=== PATIENT | female | born 1950 | race Caucasian/White ===

== ENCOUNTER 2021-03-18 12:09 | Inpatient (IN) ==
[2021-03-18] MEDS ORDERED: SODIUM CHLORIDE 0.9% 1000ML 1,000 ML IV ONE (12:15)
[2021-03-18] MEDS ORDERED: PIPERACILL/TAZOBAC CONSULT ACTIVE PRN (12:15)
[2021-03-18] MEDS ORDERED: PIPERACILLIN/TAZOBACTAM 4.5 GM/120 ML BAG IV ONE (12:15)
[2021-03-18 12:40] LABS: Basophils # (auto) 0.01 K/uL (0-0.2); Basophils % (auto) 0.1 %; Eosinophils % (auto) 2.6 %; Immature Granulocytes # (auto) 0.02 K/uL (0.00-0.02); Immature Granulocytes % (auto) 0.3 %; Lymphocytes # (auto) 0.48 K/uL (1.2-3.4); Lymphocytes % (auto) 6.3 %; Mean Corpuscular Hemoglobin 31.3 pg (25-34); Mean Corpuscular Hgb Conc 31.3 g/dL (32-36); Mean Platelet Volume 10.6 fL (7.4-10.4); Monocytes # (auto) 0.36 K/uL (0.11-0.59); Monocytes % (auto) 4.7 %; Neutrophils # (auto) 6.58 K/uL (1.4-6.5); Platelet Count 155 K/uL (130-400); RDW Coefficient of Variation 14.7 % (11.5-14.5); RDW Standard Deviation 53.3 fL (36.4-46.3); White Blood Count 7.65 K/uL (4.8-10.8)
--- NOTE | 2021-03-18 12:51 | XRay Report ---
XR chest 1V portable HISTORY: SEPSIS COMPARISON: Chest 01/10/2016. FINDINGS: No pneumothorax. No pleural effusions. The cardiac silhouette remains enlarged. There are p oststernotomy changes and a left-sided pacemaker/defibrillator. There is mild central pulmonary vascu lar congestion without overt edema. No new focal lung consolidations to suggest pneumonia. IMPRESSION: Cardiomegaly and mild central pulmonary vascular congestion without overt edema. This is similar to t he prior study. ACT 112: Negative or not required by law. Electronically signed by: Sanjeev Gibbs M.D. 03/18/2021 12:50 PM
--- NOTE | 2021-03-18 12:54 | Emergency Department Note ---
Impression & Plan Acute alteration in mental status, UTI (urinary tract infection), Acute kidney injury ED Provider Note NAME: JOSE ANTONIO SILVERIO AGE: 70 SEX: F : 1950 ARRIVES VIA: Ambulance INFORMANT: Patient, EMS personnel ED PROVIDER(S): Christopher Parker DO CHIEF COMPLAINT: Altered mental status HPI: The patient is a 70-year-old female who presented to the emergency department for an evaluation of altered mental status. The patient recently r eturned from a trip that she took to [place]. The patient offers no complaints at this time. She is very confused. According to the EMS personnel the patient was found to have a fever. Her significant other thought that she felt subjectively warm but no fever was reported. She has had no nausea or vomiting. She does have a history of COPD but also has a history of frequent urinary tract infections. She was noted to have a cough by the prehospital personnel and her pulse ox was borderline. She has had no reported trauma. The patient herself denies having any headache or back pain. History is significantly limited secondary to patient's altered mental status. ROS: See above HPI for pertinent positives & negatives. A total of 10 systems reviewed and were otherwise negative. PAST MEDICAL HISTORY: See Below PAST SURGICAL HISTORY: See Below FAMILY HISTORY: See Below SOCIAL HISTORY: See Below HOME MEDICATIONS: See Below ALLERGIES: See Below VITALS: See Below PHYSICAL EXAMINATION: GENERAL: The patient is listless and slow to respond to questions. EYES: The conjunctivae are clear. The pupils are round and reactive. EARS, NOSE, MOUTH AND THROAT: The nose is without any evidence of any deformity. Mucous membranes are dry. NECK: The neck is nontender and supple. RESPIRATORY: Diminished breath sounds are noted throughout. Rales were noted in both lung zambrano. CARDIOVASCULAR: Regular rate and rhythm noted there no murmurs rubs or gallops normal S1 normal S2. GASTROINTESTINAL: The abdomen is soft. Abdomen is nontender. There is an ostomy noted. There is no blood in the ostomy bag. MUSCULOSKELETAL/EXTREMITIES: There is no evidence of gross deformity full range of motion is noted in the hips and shoulders. SKIN: Skin was warm and dry. Trace pedal edema was noted bilaterally. NEUROLOGIC: Patient does follow commands intermittently. She does appear confused and slow to answer questions. The patient was all extremities well. MEDICAL DECISION MAKING: The patient is a 70-year-old female who presented to the emergency department for an evaluation of altered mental status. We were told by the prehospital personnel that the patient recently returned from a trip but when the arrived he states that is not the truth and that they were not traveling recently. The patient has a history of urinary tract infection. She was found have a fever. I discussed the patient's laboratory and radiographic studies with her and her . She appeared to have alteration in mental status. I do fear that this could be secondary to the degree of her infection. She was treated with IV fluids and IV antibiotics. She was reevaluated multiple times. Her symptoms improved mildly but she continued to have fever and tachycardia. For this reason [facility] have agreed to evaluate the patient in the emergency department for further management and disposition. Triage Nursing notes reviewed. Prior medical records reviewed Vital Signs: reviewed and remarkable for tachycardia and fever. Differential diagnosis: Infection, hypoglycemia, electrolyte abnormalities, overdose, toxicologic, cardiac sources, intracerebral event, neurologic, trauma, as well as other pathologies. ER treatment provided: See below Diagnostics interpreted by me: ECG: EKG was obtained in the emergency department. My interpretation is atrial sensed ventricular paced rhythm at 97 bpm. There was a right bundle branch block pattern noted. There were no kashia beats appreciated. This was compared to a tracing from January 112015. No significant changes were noted. Cardiac Monitoring: An order was placed for continuous cardiac monitoring. The monitor shows a rate of 115 bpm with paced rhythm. Laboratory studies: As stated above and show below. Imaging studies: See below Consultation(s): 1405: I discussed this case with Dr. Bell who is on-call for the [facility] hospitalist group. They will evaluate the patient in the emergency department. Past Med/Surg History Medical History (Updated 03/18/21 @ 19:22 by Christopher Parker DO) YUMIKO (acute kidney injury) Chest pain Hx of myocardial infarction Hypotension Pacemaker Sepsis Surgical History History of bowel resection Social History Smoking Status: Unknown if ever smoked Feels Safe at Home: Yes Allergies Allergies Allergy/AdvReac Type Severity Reaction Status Date / Time Iodinated Contrast Media Allergy Unknown "CONTRAST Verified 03/18/21 14:29 MEDIA" ALLERGY orphenadrine Allergy Unknown Verified 03/18/21 14:29 prochlorperazine Allergy Unknown Verified 03/18/21 14:29 Unclassified Drugs Allergy Unknown XANTHINE Uncoded 03/18/21 14:29 ALLERGY Home Meds Home Medications Medication Instructions Recorded Confirmed allopurinol 300 mg tablet 300 mg PO HS 03/18/21 03/18/21 apixaban 5 mg tablet (Eliquis) 5 mg PO BID 03/18/21 03/18/21 aspirin 81 mg tablet,delayed 81 mg PO QAM 03/18/21 03/18/21 release (Aspirin Low Dose) atorvastatin 40 mg tablet (Lipitor) 40 mg PO DAILY 03/18/21 03/18/21 benzonatate 100 mg capsule 100 mg PO TID PRN 03/18/21 03/18/21 (Tessalon Perles) carvedilol 25 mg tablet (Coreg) 25 mg PO BID 03/18/21 03/18/21 citalopram 20 mg tablet (Celexa) 20 mg PO QAM 03/18/21 03/18/21 diclofenac sodium 1 % topical gel 2 g TOPICAL QID PRN 03/18/21 03/18/21 (Voltaren Arthritis Pain) famotidine 20 mg tablet (Pepcid) 20 mg PO BID 03/18/21 03/18/21 fentanyl 25 mcg/hr transdermal 25 mcg TRANSDERMAL Q72H 03/18/21 03/18/21 patch (Duragesic) ferrous sulfate 325 mg (65 mg 325 mg PO QAM 03/18/21 03/18/21 iron) tablet (iron) furosemide 40 mg tablet (Lasix) 40 mg PO BID 03/18/21 03/18/21 gabapentin 600 mg tablet 600 mg PO TID 03/18/21 03/18/21 (Neurontin) hydrocodone 10 mg-acetaminophen 1 tab PO TID PRN 03/18/21 03/18/21 325 mg tablet insulin glargine 100 unit/mL (3 15 unit SUBCUT HS 03/18/21 03/18/21 mL) subcutaneous pen (Lantus Solostar U-100 Insulin) ipratropium bromide 17 2 puff INHALATION QID 03/18/21 03/18/21 mcg/actuation HFA aerosol inhaler (Atrovent HFA) isosorbide mononitrate 30 mg 30 mg PO QAM 03/18/21 03/18/21 tablet,extended release 24 hr latanoprost 0.005 % eye drops 1 drp OPB HS 03/18/21 03/18/21 (Xalatan) magnesium oxide 400 mg PO QAM 03/18/21 03/18/21 montelukast 10 mg tablet 10 mg PO HS 03/18/21 03/18/21 (Singulair) wyioqssovqls-rmtswsyd-mycxtg 1 tab PO QAM 03/18/21 03/18/21 tablet (Cerovite Senior) potassium chloride 20 mEq 20 meq PO BID 03/18/21 03/18/21 tablet,extended release(part/cryst) (Klor-Con M) tiotropium bromide 1.25 2 puff INHALATION DAILY 03/18/21 03/18/21 mcg/actuation mist for inhalation (Spiriva Respimat) tizanidine 4 mg tablet (Zanaflex) 2 - 4 mg PO Q24H PRN 03/18/21 03/18/21 valsartan 40 mg tablet (Diovan) 40 mg PO HS 03/18/21 03/18/21 Results & Data (ED) Vital Signs Vital Signs - 24 hr 03/18/21 12:10 03/18/21 12:17 03/18/21 12:31 Temperature 39.7 C H Temperature Source Rectal Pulse Rate 99 H Pulse Rate [Left Finger] Pulse Rate from SpO2 Sensor 99 H 99 H Respiratory Rate 26 H 24 20 Respiratory Effort / Characteristics Non-Labored Respiratory Depth Normal Blood Pressure 126/54 L 126/54 L 130/79 Blood Pressure [Left Arm] Blood Pressure Mean 78 78 96 Blood Pressure Mean [Left Arm] Pulse Oximetry 91 95 93 Oxygen Delivery Method Room Air Oxygen Flow Rate Sepsis Recent Fever Within 48 Hours Yes Sepsis New/Unexplained Change in Mental Status Yes Sepsis Action Taken by Nursing Physician Notified Pulse Oximetry Post Tiitration 03/18/21 12:59 03/18/21 13:00 03/18/21 13:01 Temperature Temperature Source Pulse Rate Pulse Rate [Left Finger] 99 H Pulse Rate from SpO2 Sensor 100 H 99 H Respiratory Rate 20 20 26 H Respiratory Effort / Characteristics Non-Labored Non-Labored Respiratory Depth Blood Pressure 118/83 141/83 H Blood Pressure [Left Arm] 141/83 H Blood Pressure Mean 94 102 Blood Pressure Mean [Left Arm] 102 Pulse Oximetry 95 94 95 Oxygen Delivery Method Room Air Room Air Oxygen Flow Rate Sepsis Recent Fever Within 48 Hours Sepsis New/Unexplained Change in Mental Status Sepsis Action Taken by Nursing Pulse Oximetry Post Tiitration 03/18/21 13:26 03/18/21 13:57 03/18/21 14:00 Temperature Temperature Source Pulse Rate 103 H 106 H 104 H Pulse Rate [Left Finger] Pulse Rate from SpO2 Sensor 103 H 106 H Respiratory Rate 17 21 23 Respiratory Effort / Characteristics Respiratory Depth Blood Pressure 132/65 118/73 Blood Pressure [Left Arm] Blood Pressure Mean 87 88 Blood Pressure Mean [Left Arm] Pulse Oximetry 96 97 Oxygen Delivery Method Oxygen Flow Rate Sepsis Recent Fever Within 48 Hours Sepsis New/Unexplained Change in Mental Status Sepsis Action Taken by Nursing Pulse Oximetry Post Tiitration 03/18/21 14:04 03/18/21 14:05 03/18/21 14:31 Temperature Temperature Source Pulse Rate 107 H Pulse Rate [Left Finger] 102 H Pulse Rate from SpO2 Sensor 107 H Respiratory Rate 17 15 Respiratory Effort / Characteristics Non-Labored Respiratory Depth Normal Blood Pressure 133/83 Blood Pressure [Left Arm] 118/73 Blood Pressure Mean 99 Blood Pressure Mean [Left Arm] 88 Pulse Oximetry 93 100 100 Oxygen Delivery Method Nasal Cannula Nasal Cannula Oxygen Flow Rate 2.5 2.5 Sepsis Recent Fever Within 48 Hours Sepsis New/Unexplained Change in Mental Status Sepsis Action Taken by Nursing Pulse Oximetry Post Tiitration 100 03/18/21 14:52 03/18/21 14:53 03/18/21 15:00 Temperature Temperature Source Pulse Rate 111 H 112 H Pulse Rate [Left Finger] 112 H Pulse Rate from SpO2 Sensor 111 H 114 H Respiratory Rate 28 H 20 28 H Respiratory Effort / Characteristics Non-Labored Respiratory Depth Normal Blood Pressure 138/68 124/75 Blood Pressure [Left Arm] 143/78 H Blood Pressure Mean 91 91 Blood Pressure Mean [Left Arm] 99 Pulse Oximetry 98 100 100 Oxygen Delivery Method Oxygen Flow Rate 2.5 Sepsis Recent Fever Within 48 Hours Sepsis New/Unexplained Change in Mental Status Sepsis Action Taken by Nursing Pulse Oximetry Post Tiitration Home Medications Current Medication List: was personally reviewed by me Laboratory Data Attestation: I reviewed the patient's lab results. Result diagrams: 03/18/21 11:56 03/18/21 11:56 Lab Results 03/18/21 03/18/21 03/18/21 Range/Units 11:56 11:56 11:56 WBC 7.65 (4.8-10.8) K/uL RBC 3.20 L (4.2-5.4) M/uL Hgb 10.0 L (12.0-16.0) g/dL Hct 32.0 L (37-47) % MCV 100.0 (80-100) fL MCH 31.3 (25-34) pg MCHC 31.3 L (32-36) g/dL RDW Std Deviation 53.3 H (36.4-46.3) fL RDW Coeff of Shira 14.7 H (11.5-14.5) % Plt Count 155 (130-400) K/uL MPV 10.6 H (7.4-10.4) fL Immature Gran % (Auto) 0.3 % Neut % (Auto) 86.0 % Lymph % (Auto) 6.3 % [place] % (Auto) 4.7 % Eos % (Auto) 2.6 % Baso % (Auto) 0.1 % Neut # (Auto) 6.58 H (1.4-6.5) K/uL Lymph # (Auto) 0.48 L (1.2-3.4) K/uL [place] # (Auto) 0.36 (0.11-0.59) K/uL Eos # (Auto) 0.20 (0-0.5) K/uL Baso # (Auto) 0.01 (0-0.2) K/uL Immature Gran # (Auto) 0.02 (0.00-0.02) K/uL PT Cancelled INR Cancelled APTT Cancelled PTT Ratio Cancelled VBG pH (7.36-7.41) VBG pCO2 (38-50) mmHg VBG pO2 mmHg VBG HCO3 mmol/L VBG O2 Saturation % VBG Base Excess mEq/L Barometric Pressure mm/Hg Sodium 135 L (136-145) mmol/L Potassium 5.8 H (3.5-5.1) mmol/L Chloride 106 (98-107) mmol/L Carbon Dioxide 27 (21-32) mmol/L Anion Gap 2.0 L (3-11) BUN 30 H (7-18) mg/dl Creatinine 2.36 H (0.6-1.2) mg/dl Est Cr Clr Drug Dosing 24.1 ml/min Est GFR ( Amer) 23.7 ml/min Est GFR (Non-Af Amer) 20.5 ml/min BUN/Creatinine Ratio 12.6 (10-20) Glucose 154 H (70-99) mg/dl Lactate (0.4-2.0) mmol/L Calcium 8.7 (8.5-10.1) mg/dl Magnesium 2.1 (1.8-2.4) mg/dl Total Bilirubin 0.6 (0.2-1) mg/dl AST 24 (15-37) U/L ALT 19 (12-78) U/L Alkaline Phosphatase 125 H (45-117) U/L Troponin I < 0.015 (0-0.045) ng/ml Total Protein 7.4 (6.4-8.2) gm/dl Albumin 3.2 L (3.4-5.0) gm/dl Globulin 4.2 H (2.5-4.0) gm/dl Albumin/Globulin Ratio 0.8 L (0.9-2) Procalcitonin (0-0.5) ng/ml Specimen Hemolysis Urine Color Urine Appearance (Clear) Urine pH (4.5-7.5) Ur Specific Ruby (1.000-1.030) Urine Protein (Negative) Urine Glucose (UA) (Negative) Urine Ketones (Negative) Urine Blood (Negative) Urine Nitrite (Negative) Urine Bilirubin (Negative) Urine Urobilinogen (Negative) Ur Leukocyte Esterase (Negative) Urine WBC (Auto) (0-5) /hpf Urine RBC (Auto) (0-4) /hpf U Hyaline Cast (Auto) (0-5) /lpf U Epithel Cells (Auto) (0-5) /lpf Urine Bacteria (Auto) (Negative) Urine Yeast (None Prsent) COVID-19 Eval Order SARS-CoV-2 (PCR) (Negative) 03/18/21 03/18/21 03/18/21 Range/Units 11:56 12:44 12:45 WBC (4.8-10.8) K/uL RBC (4.2-5.4) M/uL Hgb (12.0-16.0) g/dL Hct (37-47) % MCV (80-100) fL MCH (25-34) pg MCHC (32-36) g/dL RDW Std Deviation (36.4-46.3) fL RDW Coeff of Shira (11.5-14.5) % Plt Count (130-400) K/uL MPV (7.4-10.4) fL Immature Gran % (Auto) % Neut % (Auto) % Lymph % (Auto) % [place] % (Auto) % Eos % (Auto) % Baso % (Auto) % Neut # (Auto) (1.4-6.5) K/uL Lymph # (Auto) (1.2-3.4) K/uL [place] # (Auto) (0.11-0.59) K/uL Eos # (Auto) (0-0.5) K/uL Baso # (Auto) (0-0.2) K/uL Immature Gran # (Auto) (0.00-0.02) K/uL PT INR APTT PTT Ratio VBG pH (7.36-7.41) VBG pCO2 (38-50) mmHg VBG pO2 mmHg VBG HCO3 mmol/L VBG O2 Saturation % VBG Base Excess mEq/L Barometric Pressure mm/Hg Sodium (136-145) mmol/L Potassium (3.5-5.1) mmol/L Chloride (98-107) mmol/L Carbon Dioxide (21-32) mmol/L Anion Gap (3-11) BUN (7-18) mg/dl Creatinine (0.6-1.2) mg/dl Est Cr Clr Drug Dosing ml/min Est GFR ( Amer) ml/min Est GFR (Non-Af Amer) ml/min BUN/Creatinine Ratio (10-20) Glucose (70-99) mg/dl Lactate (0.4-2.0) mmol/L Calcium (8.5-10.1) mg/dl Magnesium (1.8-2.4) mg/dl Total Bilirubin (0.2-1) mg/dl AST (15-37) U/L ALT (12-78) U/L Alkaline Phosphatase (45-117) U/L Troponin I (0-0.045) ng/ml Total Protein (6.4-8.2) gm/dl Albumin (3.4-5.0) gm/dl Globulin (2.5-4.0) gm/dl Albumin/Globulin Ratio (0.9-2) Procalcitonin 0.24 (0-0.5) ng/ml Specimen Hemolysis Urine Color Yellow Urine Appearance Cloudy A (Clear) Urine pH 5.5 (4.5-7.5) Ur Specific Ruby 1.017 (1.000-1.030) Urine Protein Negative (Negative) Urine Glucose (UA) Negative (Negative) Urine Ketones Negative (Negative) Urine Blood Negative (Negative) Urine Nitrite Positive A (Negative) Urine Bilirubin Negative (Negative) Urine Urobilinogen Negative (Negative) Ur Leukocyte Esterase 2+ H (Negative) Urine WBC (Auto) >30 H (0-5) /hpf Urine RBC (Auto) 0-4 (0-4) /hpf U Hyaline Cast (Auto) 5-10 H (0-5) /lpf U Epithel Cells (Auto) >30 H (0-5) /lpf Urine Bacteria (Auto) 4+ H (Negative) Urine Yeast Budding A (None Prsent) COVID-19 Eval Order Covid19 at [facility] SARS-CoV-2 (PCR) (Negative) 03/18/21 03/18/21 03/18/21 Range/Units 12:45 13:09 13:20 WBC (4.8-10.8) K/uL RBC (4.2-5.4) M/uL Hgb (12.0-16.0) g/dL Hct (37-47) % MCV (80-100) fL MCH (25-34) pg MCHC (32-36) g/dL RDW Std Deviation (36.4-46.3) fL RDW Coeff of Shira (11.5-14.5) % Plt Count (130-400) K/uL MPV (7.4-10.4) fL Immature Gran % (Auto) % Neut % (Auto) % Lymph % (Auto) % [place] % (Auto) % Eos % (Auto) % Baso % (Auto) % Neut # (Auto) (1.4-6.5) K/uL Lymph # (Auto) (1.2-3.4) K/uL [place] # (Auto) (0.11-0.59) K/uL Eos # (Auto) (0-0.5) K/uL Baso # (Auto) (0-0.2) K/uL Immature Gran # (Auto) (0.00-0.02) K/uL PT INR APTT PTT Ratio VBG pH 7.32 L (7.36-7.41) VBG pCO2 56 H (38-50) mmHg VBG pO2 28 mmHg VBG HCO3 28 mmol/L VBG O2 Saturation < 60.0 % VBG Base Excess 0.7 mEq/L Barometric Pressure 730.3 mm/Hg Sodium (136-145) mmol/L Potassium (3.5-5.1) mmol/L Chloride (98-107) mmol/L Carbon Dioxide (21-32) mmol/L Anion Gap (3-11) BUN (7-18) mg/dl Creatinine (0.6-1.2) mg/dl Est Cr Clr Drug Dosing ml/min Est GFR ( Amer) ml/min Est GFR (Non-Af Amer) ml/min BUN/Creatinine Ratio (10-20) Glucose (70-99) mg/dl Lactate 1.6 (0.4-2.0) mmol/L Calcium (8.5-10.1) mg/dl Magnesium (1.8-2.4) mg/dl Total Bilirubin (0.2-1) mg/dl AST (15-37) U/L ALT (12-78) U/L Alkaline Phosphatase (45-117) U/L Troponin I (0-0.045) ng/ml Total Protein (6.4-8.2) gm/dl Albumin (3.4-5.0) gm/dl Globulin (2.5-4.0) gm/dl Albumin/Globulin Ratio (0.9-2) Procalcitonin (0-0.5) ng/ml Specimen Hemolysis Urine Color Urine Appearance (Clear) Urine pH (4.5-7.5) Ur Specific Ruby (1.000-1.030) Urine Protein (Negative) Urine Glucose (UA) (Negative) Urine Ketones (Negative) Urine Blood (Negative) Urine Nitrite (Negative) Urine Bilirubin (Negative) Urine Urobilinogen (Negative) Ur Leukocyte Esterase (Negative) Urine WBC (Auto) (0-5) /hpf Urine RBC (Auto) (0-4) /hpf U Hyaline Cast (Auto) (0-5) /lpf U Epithel Cells (Auto) (0-5) /lpf Urine Bacteria (Auto) (Negative) Urine Yeast (None Prsent) COVID-19 Eval Order SARS-CoV-2 (PCR) NEGATIVE (Negative) 03/18/21 Range/Units 14:30 WBC (4.8-10.8) K/uL RBC (4.2-5.4) M/uL Hgb (12.0-16.0) g/dL Hct (37-47) % MCV (80-100) fL MCH (25-34) pg MCHC (32-36) g/dL RDW Std Deviation (36.4-46.3) fL RDW Coeff of Shira (11.5-14.5) % Plt Count (130-400) K/uL MPV (7.4-10.4) fL Immature Gran % (Auto) % Neut % (Auto) % Lymph % (Auto) % [place] % (Auto) % Eos % (Auto) % Baso % (Auto) % Neut # (Auto) (1.4-6.5) K/uL Lymph # (Auto) (1.2-3.4) K/uL [place] # (Auto) (0.11-0.59) K/uL Eos # (Auto) (0-0.5) K/uL Baso # (Auto) (0-0.2) K/uL Immature Gran # (Auto) (0.00-0.02) K/uL PT 10.1 INR 1.0 APTT 25.9 PTT Ratio 1.0 VBG pH (7.36-7.41) VBG pCO2 (38-50) mmHg VBG pO2 mmHg VBG HCO3 mmol/L VBG O2 Saturation % VBG Base Excess mEq/L Barometric Pressure mm/Hg Sodium (136-145) mmol/L Potassium (3.5-5.1) mmol/L Chloride (98-107) mmol/L Carbon Dioxide (21-32) mmol/L Anion Gap (3-11) BUN (7-18) mg/dl Creatinine (0.6-1.2) mg/dl Est Cr Clr Drug Dosing ml/min Est GFR ( Amer) ml/min Est GFR (Non-Af Amer) ml/min BUN/Creatinine Ratio (10-20) Glucose (70-99) mg/dl Lactate (0.4-2.0) mmol/L Calcium (8.5-10.1) mg/dl Magnesium (1.8-2.4) mg/dl Total Bilirubin (0.2-1) mg/dl AST (15-37) U/L ALT (12-78) U/L Alkaline Phosphatase (45-117) U/L Troponin I (0-0.045) ng/ml Total Protein (6.4-8.2) gm/dl Albumin (3.4-5.0) gm/dl Globulin (2.5-4.0) gm/dl Albumin/Globulin Ratio (0.9-2) Procalcitonin (0-0.5) ng/ml Specimen Hemolysis Urine Color Urine Appearance (Clear) Urine pH (4.5-7.5) Ur Specific Ruby (1.000-1.030) Urine Protein (Negative) Urine Glucose (UA) (Negative) Urine Ketones (Negative) Urine Blood (Negative) Urine Nitrite (Negative) Urine Bilirubin (Negative) Urine Urobilinogen (Negative) Ur Leukocyte Esterase (Negative) Urine WBC (Auto) (0-5) /hpf Urine RBC (Auto) (0-4) /hpf U Hyaline Cast (Auto) (0-5) /lpf U Epithel Cells (Auto) (0-5) /lpf Urine Bacteria (Auto) (Negative) Urine Yeast (None Prsent) COVID-19 Eval Order SARS-CoV-2 (PCR) (Negative) Administered Medications Acetaminophen (Acetaminophen 325 Mg Tab) 650 mg PO Q4H PRN PRN Reason: pain/fever Stop: 04/17/21 18:25 Last Admin: 03/18/21 19:44 Dose: 650 mg Documented by: [id number] Ceftriaxone Sodium 2,000 mg/ (Dextrose) 70 mls @ 100 mls/hr IV Q24H FOR[facility]LY [facility], 1928–1983; Protocol Stop: 03/28/21 18:59 Last Admin: 03/18/21 19:44 Dose: 100 mls/hr Documented by: [id number] Discontinued Medications Furosemide (Furosemide 40 Mg/4 Ml Vial) 40 mg IV NOW STA Stop: 03/18/21 15:30 Last Admin: 03/18/21 16:01 Dose: 40 mg Documented by: [id number] Sodium Chloride (Nss 1000ml) 1,000 mls @ 999 mls/hr IV .Q1H1M ONE Stop: 03/18/21 13:15 Last Infusion: 03/18/21 14:51 Dose: 0 mls/hr Documented by: [id number] Admin: 03/18/21 12:20 Dose: 999 mls/hr Documented by: [id number] Piperacillin Sod/Tazobactam Sod (Zosyn) 4.5 gm in 120 mls @ 240 mls/hr IV NOW ONE Stop: 03/18/21 12:44 Last Infusion: 03/18/21 14:50 Dose: 0 mls/hr Documented by: [id number] Admin: 03/18/21 13:22 Dose: 240 mls/hr Documented by: [id number] Imaging Data Radiologist's Impression: Abdomen/Pelvis CT 03/18/21 12:15 CT OF THE ABDOMEN AND PELVIS WITHOUT CONTRAST CLINICAL HISTORY: Altered mental status. Abdominal pain. COMPARISON STUDY: CT of the abdomen and pelvis April 30, 2012. TECHNIQUE: Axial images of the abdomen and pelvis were obtained without IV contrast. Images were reviewed in the axial, sagittal, and coronal planes. Automated exposure control was utilized for the study. A dose lowering technique was utilized adhering to the principles of ALARA. FINDINGS: Pacer leads are partially imaged. Cardiomegaly is noted. 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 No pneumatosis, free air or portal venous gas is present. Evaluation of the abdomen and pelvis is compromised given the lack of contrast and motion artifact on this exam. A 1.7 cm hypodense inferior right hepatic lobe lesion is unchanged since CT of April 30, 2012. This is benign. There is borderline spleno megaly. Adrenal glands are unremarkable. There is moderate bilateral renal cortical thinning. There is no hydronephrosis. Posey balloon is present within the bladder as well as a small amount of gas. There are no urinary calculi. There is no biliary ductal dilatation status post cholecystectomy. Note is made of a hypodense 3.7 cm lobulated pancreatic tail mass. This is similar in size to CT of April 30, 2012 although the attenuation appears to have slightly increased. This is suboptimally assessed on this unenhanced exam. Note is made of extensive colonic diverticulosis. There is minimal infiltration adjacent to the remaining portion of the colon and the rectum status post right colon re section. There is a right lower quadrant ileostomy. Several loops of mildly dilated small bowel are noted. No well-defined transition point is identified. There is no lymphadenopathy. Note is made of irregularity bilateral sacroiliac joints which may reflect sacroiliitis. IMPRESSION: 1. Status post right colon resection with right lower quadrant ileostomy. Multiple loops of mildly dilated small bowel without well-defined transition point. The findings favor an ileus however partial small bowel obstruction could appear similar. Exam compromised given lack of contrast and motion artifact. 2. Minimal infiltration adjacent to the rectum and remaining portions of the colon. This could reflect a mild nonspecific proctocolitis. 3. 3.7 cm lobulated pancreatic tail mass. This is similar in size to prior CT of April 30, 2012 however attenuation has slightly increased. This lesion remains pathologically indeterminate. Follow-up nonemergent pancreas protocol CT is recommended. ACT 112: Positive. There are findings on this exam that require communication between the performing entity and the patient following Patient Test Result Information Act ([place] Act 112) guidelines. Electronically signed by: Saroj Rodriguez M.D. 03/18/2021 2:36 PM Chest X-Ray 03/18/21 12:15 XR chest 1V portable HISTORY: SEPSIS COMPARISON: Chest 01/10/2016. FINDINGS: No pneumothorax. No pleural effusions. The cardiac silhouette remains enlarged. There are poststernotomy changes and a left-sided pacemaker/defibrillator. There is mild central pulmonary vascular congestion without overt edema. No new focal lung consolidations to suggest pneumonia. IMPRESSION: Cardiomegaly and mild central pulmonary vascular congestion without overt edema. This is similar to the prior study. ACT 112: Negative or not required by law. Electronically signed by: Sanjeev Gibbs M.D. 03/18/2021 12:[address] 03/18/21 12:15 CT head/brain wo con CLINICAL HISTORY: 70 years-old Female with AMS. Acutely altered mental status TECHNIQUE: Multiple axial CT images of the head were obtained without contrast. A dose lowering technique was utilized adhering to the principles of ALARA. COMPARISON: 10/22/2008. FINDINGS: Motion degraded exam. No acute intracranial hemorrhage, midline shift, intracranial mass, hydrocephalus, territorial ischemia or abnormal extra-axial collection. White matter hypodensities suggestive of chronic microvascular ischemic disease. Ill-defined 9 mm hypodensity of the left paracentral pontine brainstem on image 7 series 2 is new from prior. The calvarium is intact. The paranasal sinuses, mastoid air cells, and middle ear cavities are clear. IMPRESSION: 1. Motion degraded exam. No acute intracranial hemorrhage or acute territorial infarct identified. 2. Subcentimeter ill-defined hypodensity involving the left paracentral mayi is favored to be artifact. An age-indeterminate lacunar infarct could appear similarly. ACT 112: Negative or not required by law. The above report was generated using voice recognition software. It may contain grammatical, syntax or spelling errors. Electronically signed by: Regino Ames M.D. 03/18/2021 2:02 PM Discharge Plan Visit Data Chief Complaint: Altered Mental Status Stated Complaint: Septic ED Provider: Christopher Parker Discharge Problem: Acute alteration in mental status, UTI (urinary tract infection), Acute kidney injury Patient Disposition: Admitted As Inpatient Condition: Good Discharge Instructions Interventions: ED Discharge Assessment Last Done: 03/18/21 18:06 Discharge Problem: UTI (urinary tract infection) Qualifiers: Urinary tract infection type: site unspecified Hematuria presence: without hematuria Qualified Code(s): N39.0 - Urinary tract infection, site not specified
[2021-03-18 13:05] LABS: Appearance Urine Cloudy (Clear); Bacteria Urine Automated 4+ (Negative); Bilirubin Urine Negative (Negative); Blood Urine Negative (Negative); Color Urine Yellow; Epithelial Cell Urine Auto >30 /lpf (0-5); Glucose Urine UA Negative (Negative); Ketones Urine Negative (Negative); Leukocyte Esterase Urine 2+ (Negative); Nitrite Urine Positive (Negative); Protein Urine Negative (Negative); RBC Urine Automated 0-4 /hpf (0-4); Specific Gravity Urine 1.017 (1.000-1.030); Urobilinogen Urine Negative (Negative); WBC Urine Automated >30 /hpf (0-5); pH Urine 5.5 (4.5-7.5)
[2021-03-18 13:06] LABS: Alanine Aminotransferase 19 U/L (12-78); Albumin Level 3.2 gm/dl (3.4-5.0); Aspartate Aminotransferase 24 U/L (15-37); BUN Creatinine Ratio 12.6 (10-20); Blood Urea Nitrogen 30 mg/dl (7-18); Calcium 8.7 mg/dl (8.5-10.1); Carbon Dioxide 27 mmol/L (21-32); Chloride 106 mmol/L (98-107); Creatinine Clr Calc Pharmacy 24.1 ml/min; Est GFR (African American) 23.7 ml/min; Est GFR (Non-African American) 20.5 ml/min; Glucose 154 mg/dl (70-99); Magnesium 2.1 mg/dl (1.8-2.4); Potassium 5.8 mmol/L (3.5-5.1); Sodium 135 mmol/L (136-145)
[2021-03-18 13:11] LABS: Albumin Globulin Ratio 0.8 (0.9-2); Alkaline Phosphatase 125 U/L (45-117); Bilirubin,Total 0.6 mg/dl (0.2-1); Globulin 4.2 gm/dl (2.5-4.0); Total Protein 7.4 gm/dl (6.4-8.2); Troponin I < 0.015 ng/ml (0-0.045)
[2021-03-18 13:21] LABS: Base Excess VBG 0.7 mEq/L; HCO3 VBG 28 mmol/L; PCO2 VBG 56 mmHg (38-50); PO2 VBG 28 mmHg; pH VBG 7.32 (7.36-7.41)
[2021-03-18 13:22] LABS: Oxygen Saturation VBG < 60.0 %
--- NOTE | 2021-03-18 14:03 | CT Scan Report ---
CT head/brain wo con CLINICAL HISTORY: 70 years-old Female with AMS. Acutely altered mental status TECHNIQUE: Multiple axial CT images of the head were obtained without contrast. A dose lowering tech nique was utilized adhering to the principles of ALARA. COMPARISON: 10/22/2008. FINDINGS: Motion degraded exam. No acute intracranial hemorrhage, midline shift, intracranial mass, hydrocephal us, territorial ischemia or abnormal extra-axial collection. White matter hypodensities suggestive of chronic microvascular ischemic disease. Ill-defined 9 mm hypodensity of the left paracentral pontine brainstem on image 7 series 2 is new from prior. The calvarium is intact. The paranasal sinuses, mastoid air cells, and middle ear cavities are clear . IMPRESSION: 1. Motion degraded exam. No acute intracranial hemorrhage or acute territorial infarct identified. 2. Subcentimeter ill-defined hypodensity involving the left paracentral mayi is favored to be artifac t. An age-indeterminate lacunar infarct could appear similarly. ACT 112: Negative or not required by law. The above report was generated using voice recognition software. It may contain grammatical, syntax o r spelling errors. Electronically signed by: Regino Ames M.D. 03/18/2021 2:02 PM
--- NOTE | 2021-03-18 14:38 | CT Scan Report ---
CT OF THE ABDOMEN AND PELVIS WITHOUT CONTRAST CLINICAL HISTORY: Altered mental status. Abdominal pain. COMPARISON STUDY: CT of the abdomen and pelvis April 30, 2012. TECHNIQUE: Axial images of the abdomen and pelvis were obtained without IV contrast. Images were revi ewed in the axial, sagittal, and coronal planes. Automated exposure control was utilized for the aliza dy. A dose lowering technique was utilized adhering to the principles of ALARA. FINDINGS: Pacer leads are partially imaged. Cardiomegaly is noted. 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 No pneumatosis, free air or portal venous gas is present. Evaluation of the abdomen and pelvis is com promised given the lack of contrast and motion artifact on this exam. A 1.7 cm hypodense inferior rig ht hepatic lobe lesion is unchanged since CT of April 30, 2012. This is benign. There is borderli ne splenomegaly. Adrenal glands are unremarkable. There is moderate bilateral renal cortical thinning . There is no hydronephrosis. Posey balloon is present within the bladder as well as a small amount o f gas. There are no urinary calculi. There is no biliary ductal dilatation status post cholecystectom y. Note is made of a hypodense 3.7 cm lobulated pancreatic tail mass. This is similar in size to CT o f April 30, 2012 although the attenuation appears to have slightly increased. This is suboptimall y assessed on this unenhanced exam. Note is made of extensive colonic diverticulosis. There is minima l infiltration adjacent to the remaining portion of the colon and the rectum status post right colon resection. There is a right lower quadrant ileostomy. Several loops of mildly dilated small bowel are noted. No well-defined transition point is identified. There is no lymphadenopathy. Note is made of irregularity bilateral sacroiliac joints which may reflect sacroiliitis. IMPRESSION: 1. Status post right colon resection with right lower quadrant ileostomy. Multiple loops of mildly di lated small bowel without well-defined transition point. The findings favor an ileus however partial small bowel obstruction could appear similar. Exam compromised given lack of contrast and motion no fact. 2. Minimal infiltration adjacent to the rectum and remaining portions of the colon. This could reflec t a mild nonspecific proctocolitis. 3. 3.7 cm lobulated pancreatic tail mass. This is similar in size to prior CT of April 30, 2012 h owever attenuation has slightly increased. This lesion remains pathologically indeterminate. Follow-u p nonemergent pancreas protocol CT is recommended. ACT 112: Positive. There are findings on this exam that require communication between the performing entity and the patient following Patient Test Result Information Act ([place] Act 112) guidelines. Electronically signed by: Saroj Rodriguez M.D. 03/18/2021 2:36 PM
[2021-03-18 14:55] LABS: Partial Thromboplastin Time 25.9 Seconds (21.0-31.0); Prothrombin Time 10.1 Seconds (9.0-12.0)
--- NOTE | 2021-03-18 15:25 | History & Physical Report ---
Date of Service March 18, 2021 Assessment & Plan (1) UTI (urinary tract infection): Plan: UA on admission looks infected, and the patient's reports prior episodes with a similar pattern. - No prior culture results; start ceftriaxone - Monitor urine and blood cultures (2) Infectious encephalopathy: Plan: Due to presumed UTI. CT head normal on admission. - Monitor (3) YUMIKO (acute kidney injury): Plan: Unclear baseline Cr. On admission with Cr. up to 2.36 with K+ up to 5.8. - Monitor Cr & K+. - Give Lasix dose to help excrete K+. (4) Cardiomyopathy: Plan: Likely ischemic cardiomyopathy as she has a hx of RI per notes. 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 Chronic systolic heart failure. - Continue ASA, statin, beta-ethel, ARB, Imdur, and Lasix (5) Pacemaker: Plan: Presently in atrially-sensed, ventricularly paced rhythm. Unclear why she has the ICD (other than primary prevention) (6) Hypertension: Plan: BP is 145/80 in the hospital. - Continue above meds - Monitor (7) Diabetes: Plan: No prior A1c in the chart. - Hold home long-acting give her significantly altered mental status and poor PO intake - Sliding scale insulin - A1c in AM (8) COPD (chronic obstructive pulmonary disease): Plan: No wheezing on exam. No indication of acute exacerbation. - Continue home tiotropium and montelukast - DuoNebs PRN (9) DVT prophylaxis: Plan: Heparin 5,000 units SQ Q12h History of Present Illness Chief Complaint: Confusion Primary Care Provider: Carola Stanley DO 70yo F w/ hx of cardiomyopathy, pacemaker, and several UTIs who presents to the ED with confusion. Per her , she was in her usual state of health until yesterday. Yesterday, she was "not feeling good" though he cannot really explain what was wrong. He felt that her legs were getting more swollen and that she just was extra fatigued. She did have a fall, but he feels that was unrelated. He reports that he asked her about dysuria, polyuria, etc, and that she didn't really answer him. However, otherwise, she had no focal symptoms, and they went to bed. This morning, she was confused and "talking non-sense" per the patient's . She reportedly said, "The kids are singing Krystle tonya." which to him, she was referring to the outdoor birds as "kids" which they sometimes do. However, she continued to be confused, and she was brought in by EMS. He reports this is the third time that she's been hospitalized with UTIs. The last was about 3 months ago, and must have been at an outside hospital as we have no records of it. On my exam, she is awake and semi-alert. She will say responses like "Ok." to certain questions, but is only able to answer a few yes/no questions before having trouble following. She cannot give any history on her own. Allergies Allergy/AdvReac Type Severity Reaction Status Date / Time Iodinated Contrast Media Allergy Unknown "CONTRAST Verified 03/18/21 14:29 MEDIA" ALLERGY orphenadrine Allergy Unknown Verified 03/18/21 14:29 prochlorperazine Allergy Unknown Verified 03/18/21 14:29 Unclassified Drugs Allergy Unknown XANTHINE Uncoded 03/18/21 14:29 ALLERGY Home Medications Medication Instructions Recorded Confirmed Type allopurinol 300 mg tablet 300 mg PO HS 03/18/21 03/18/21 History apixaban 5 mg tablet (Eliquis) 5 mg PO BID 03/18/21 03/18/21 History aspirin 81 mg tablet,delayed 81 mg PO QAM 03/18/21 03/18/21 History release (Aspirin Low Dose) atorvastatin 40 mg tablet (Lipitor) 40 mg PO DAILY 03/18/21 03/18/21 History benzonatate 100 mg capsule 100 mg PO TID PRN 03/18/21 03/18/21 History (Tessalon Perles) carvedilol 25 mg tablet (Coreg) 25 mg PO BID 03/18/21 03/18/21 History citalopram 20 mg tablet (Celexa) 20 mg PO QAM 03/18/21 03/18/21 History diclofenac sodium 1 % topical gel 2 g TOPICAL QID PRN 03/18/21 03/18/21 History (Voltaren Arthritis Pain) famotidine 20 mg tablet (Pepcid) 20 mg PO BID 03/18/21 03/18/21 History fentanyl 25 mcg/hr transdermal 25 mcg TRANSDERMAL Q72H 03/18/21 03/18/21 History patch (Duragesic) ferrous sulfate 325 mg (65 mg 325 mg PO QAM 03/18/21 03/18/21 History iron) tablet (iron) furosemide 40 mg tablet (Lasix) 40 mg PO BID 03/18/21 03/18/21 History gabapentin 600 mg tablet 600 mg PO TID 03/18/21 03/18/21 History (Neurontin) hydrocodone 10 mg-acetaminophen 1 tab PO TID PRN 03/18/21 03/18/21 History 325 mg tablet insulin glargine 100 unit/mL (3 15 unit SUBCUT HS 03/18/21 03/18/21 History mL) subcutaneous pen (Lantus Solostar U-100 Insulin) ipratropium bromide 17 2 puff INHALATION QID 03/18/21 03/18/21 History mcg/actuation HFA aerosol inhaler (Atrovent HFA) isosorbide mononitrate 30 mg 30 mg PO QAM 03/18/21 03/18/21 History tablet,extended release 24 hr latanoprost 0.005 % eye drops 1 drp OPB HS 03/18/21 03/18/21 History (Xalatan) magnesium oxide 400 mg PO QAM 03/18/21 03/18/21 History montelukast 10 mg tablet 10 mg PO HS 03/18/21 03/18/21 History (Singulair) ravaymvvhzkq-vhceovnj-mujftz 1 tab PO QAM 03/18/21 03/18/21 History tablet (Cerovite Senior) potassium chloride 20 mEq 20 meq PO BID 03/18/21 03/18/21 History tablet,extended release(part/cryst) (Klor-Con M) tiotropium bromide 1.25 2 puff INHALATION DAILY 03/18/21 03/18/21 History mcg/actuation mist for inhalation (Spiriva Respimat) tizanidine 4 mg tablet (Zanaflex) 2 - 4 mg PO Q24H PRN 03/18/21 03/18/21 History valsartan 40 mg tablet (Diovan) 40 mg PO HS 03/18/21 03/18/21 History Past Med/Surg History Medical History (Updated 03/18/21 @ 15:18 by Campos Bell MD) YUMIKO (acute kidney injury) Chest pain Hx of myocardial infarction Hypotension Pacemaker Sepsis Surgical History History of bowel resection Social History Smoking Status: Unknown if ever smoked Feels Safe at Home: Yes Review of Systems Review of Systems: Unobtainable due to cognitive status Physical Exam Constitutional: WD/WN, vitals as above + obese, + altered mental status and + in distress Eyes: EOM intact bilaterally; no conjunctival abnormality ENMT: external ear and nose normal, oropharynx normal Neck: trachea midline, no thyromegaly normal visual inspection Respiratory: normal respiratory effort, lungs clear to auscultation no respiratory distress Cardiovascular: Rate/Rhythm: regular rhythm and + tachycardic Heart Sounds: normal S1 and normal S2 Extremities: no edema Gastrointestinal (Abdomen): Inspection/Auscultation: abdomen normal to inspection; abdomen not distended Musculoskeletal: no cyanosis or clubbing, extremities motor strength 5/5 Skin: no rashes, warm and dry Neurologic: moves all extremities and awake Psychiatric: Orientation: alert; + not oriented x 3 Motor Behavior: no abnormal motor movements Results & Data Results & [facility] ([facility]) Vital Signs (Past 12 Hours) Vital Signs Temp Pulse Pulse Resp BP BP Pulse Ox 03/18/21 14:52 112 H 28 H 143/78 H 98 03/18/21 14:05 102 H 17 118/73 100 03/18/21 14:04 93 03/18/21 13:01 99 H 26 H 141/83 H 95 03/18/21 13:00 92 03/18/21 12:10 39.7 C H 99 H 26 H 126/54 L 91 Code Status & VTE Plan VTE Prophylaxis Plan VTE Prophylaxis will be ordered: Yes PG Care Time/CCT Total # of Minutes Spent Total Time Spent with Patient: Total time spent is greater than 50% in coordination of care (as documented) at patient's floor/unit and/or counseling patient: Coding Level of Care Code 49406 Initial Inpt Care Lvl 3 Diagnoses UTI (urinary tract infection) N39.0 Infectious encephalopathy G93.49; B99.9 Cardiomyopathy I42.9 Pacemaker Z95.0 Hypertension I10 Diabetes E11.9 COPD (chronic obstructive pulmonary disease) J44.9 DVT prophylaxis Z29.9 YUMIKO (acute kidney injury) N17.9
[2021-03-18] MEDS ORDERED: FUROSEMIDE 40 MG/4 ML VIAL IV STA (15:29)
--- NOTE | 2021-03-18 15:44 | Electrocardiogram Report ---
Test Reason : Blood Pressure : / mmHG Vent. Rate : 097 BPM Atrial Rate : 097 BPM P-R Int : 140 ms QRS Dur : 116 ms QT Int : 392 ms P-R-T Axes : 062 183 003 degrees QTc Int : 497 ms Atrial-sensed ventricular-paced rhythm Abnormal ECG When compared with ECG of 12-JAN-2016 07:01, No significant change Confirmed by Elian Avina ([id number]) on 03/18/2021 3:44:08 PM Referred By: REFERRED SELF Confirmed By:Elian Avina
[2021-03-18] MEDS ORDERED: CARBOHYDRATES FOR HYPOGLYCEMIA PO PRN (18:26)
[2021-03-18] MEDS ORDERED: ACETAMINOPHEN 325 MG TAB PO PRN (18:26)
[2021-03-18] MEDS ORDERED: GLUCOSE 10 TABS/TUBE PO PRN (18:26)
[2021-03-18] MEDS ORDERED: DEXTROSE 50% 50 ML SYRINGE IV PRN (18:26)
[2021-03-18] MEDS ORDERED: GLUCAGON FOR INJ 1 MG VIAL SQ PRN (18:26)
[2021-03-18] MEDS ORDERED: IPRATROPIUM BROMIDE HFA INHALER INH PRN (18:26)
[2021-03-18] MEDS ORDERED: GLUCOSE 40% GEL 15 GM TUBE PO PRN (18:26)
[2021-03-18] MEDS: cefTRIAXone SODIUM 2,000 MG in DEXTROSE 5% 50 ML IV SCH (19:44)
[2021-03-18 20:09] LABS: BUN Creatinine Ratio 12.4 (10-20); Calcium 8.5 mg/dl (8.5-10.1); Creatinine Clr Calc Pharmacy 25.3 ml/min; Est GFR (African American) 25.2 ml/min; Est GFR (Non-African American) 21.7 ml/min; Potassium 4.2 mmol/L (3.5-5.1)
[2021-03-18] MEDS ORDERED: HEPARIN SOD 5,000 UNIT/0.5 ML VIAL SQ SCH (21:00)
[2021-03-18] MEDS: HYDROcodone/ACETAMINOPHEN 10/325 TAB PO PRN (21:16)
[2021-03-18] MEDS: VALSARTAN 80 MG TAB PO SCH (21:17)
[2021-03-18] MEDS: allopurinoL 100 MG TAB PO SCH (21:18)
[2021-03-18] MEDS: FUROSEMIDE 40 MG TAB PO SCH (21:18)
[2021-03-18] MEDS: MONTELUKAST SODIUM 10 MG TABLET PO SCH (21:18)
[2021-03-18] MEDS: FAMOTIDINE 20 MG TAB PO SCH (21:18)
[2021-03-18] MEDS: APIXABAN 5 MG TABLET PO SCH (21:18)
[2021-03-18] MEDS: carvediloL 25 MG TAB PO SCH (21:18)
[2021-03-18] MEDS: INSULIN ASPART 100 UNITS/ML 3 ML PEN SC SCH ×2 (21:20)
[2021-03-18] MEDS: LATANOPROST 0.005% OP SOLN 2.5 ML BTL OPB SCH (21:21)
[2021-03-19 08:02] LABS: Hematocrit (blood only) 33.3 % (37-47); Hemoglobin 10.3 g/dL (12.0-16.0); Mean Corpuscular Hemoglobin 31.1 pg (25-34); Mean Corpuscular Hgb Conc 30.9 g/dL (32-36); Mean Corpuscular Volume 100.6 fL (80-100); Platelet Count 131 K/uL (130-400); RDW Coefficient of Variation 14.7 % (11.5-14.5); RDW Standard Deviation 53.7 fL (36.4-46.3); Red Blood Count 3.31 M/uL (4.2-5.4); White Blood Count 4.65 K/uL (4.8-10.8)
[2021-03-19] MEDS: UMECLIDINIUM BROMIDE 62.5MCG/BLISTER 7 PUFFS/INHALER INH SCH (08:21)
[2021-03-19] MEDS: ISOSORBIDE MONO EXTENDED REL 30 MG TABCR PO SCH (08:22)
[2021-03-19] MEDS: APIXABAN 5 MG TABLET PO SCH ×2 (08:22→21:51)
[2021-03-19] MEDS: ASPIRIN 81 MG ECTAB PO SCH (08:22)
[2021-03-19] MEDS: FUROSEMIDE 40 MG TAB PO SCH ×2 (08:22→16:28)
[2021-03-19] MEDS: FERROUS SULFATE 325 MG TAB PO SCH (08:22)
[2021-03-19] MEDS: FAMOTIDINE 20 MG TAB PO SCH ×2 (08:22→21:41)
[2021-03-19] MEDS: CITALOPRAM 20 MG TAB PO SCH (08:23)
[2021-03-19] MEDS: ATORVASTATIN 40 MG TAB PO SCH (08:23)
[2021-03-19] MEDS: INSULIN ASPART 100 UNITS/ML 3 ML PEN SC SCH ×4 (08:23→21:42)
[2021-03-19] MEDS: carvediloL 25 MG TAB PO SCH ×2 (08:23→21:41)
[2021-03-19 08:30] LABS: BUN Creatinine Ratio 12.2 (10-20); Calcium 8.6 mg/dl (8.5-10.1); Creatinine Clr Calc Pharmacy 27.6 ml/min; Est GFR (Non-African American) 24.1 ml/min; Potassium 3.8 mmol/L (3.5-5.1)
[2021-03-19 08:37] LABS: Estimated Average Glucose 189 mg/dl; Hemoglobin A1C 8.2 % (4.5-5.6)
--- NOTE | 2021-03-19 08:55 | Hospitalist Progress Note ---
Date of Service March 19, 2021 Assessment & Plan (1) UTI (urinary tract infection): Plan: UA on admission looks infected, and the patient's reports prior episodes with a similar pattern. - No prior culture results; start ceftriaxone - Monitor urine and blood cultures (2) Infectious encephalopathy: Plan: Due to presumed UTI. CT head normal on admission. - improving (3) YUMIKO (acute kidney injury): Plan: Unclear baseline Cr. On admission with Cr. up to 2.36 with K+ up to 5.8. - Monitor Cr & K+.both improving - (4) Cardiomyopathy: Plan: Likely ischemic cardiomyopathy as she has a hx of [place] per notes. 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 - Continue ASA, statin, beta-ethel, ARB, Imdur, and Lasix appears euvolemic (5) Pacemaker: Plan: Presently in atrially-sensed, ventricularly paced rhythm. she has the ICD (other than primary prevention) (6) Hypertension: Plan: - Continue above meds - (7) Diabetes: Plan: No prior A1c in the chart. - Hold home long-acting give her significantly altered mental status and poor PO intake - Sliding scale insulin - A1c 8.2 (8) COPD (chronic obstructive pulmonary disease): Plan: No wheezing on exam. No indication of acute exacerbation. - Continue home tiotropium and montelukast - DuoNebs PRN (9) DVT prophylaxis: Plan: Heparin 5,000 units SQ Q12h Admission and Anticipated Discharge Date Admission Date: March 18, 2021 Subjective pt has no concerns at this time, feels abdominal symptoms are lessening, does have continued urinary issues ostomy is working and has dark output which she says is typical for her Review of Systems Review of Systems: Mild distress and fatigue clearing mental fogginess no headache, no visual changes no speech or swallowing issues no chest pain, pressure or palpitations no shortness of breath, cough or wheezes no abdominal pain, nausea or vomiting, ostomy working appropriately for her Patient has Posey dark urine in bag no focal joint pain or swelling no back pain, CVA tenderness or radicular pain no bruising, bleeding or rashes no focal signs of weakness or numbness or altered sensation no complaints of anxiety or depression.. Physical Exam Physical Exam: The patient appeared well nourished and normally developed. Vital signs as documented. Head exam is normocephalic atraumatic Neck is without JVD, thyromegaly, or carotid bruits. Lungs are clear to auscultation, no focal loss of breath sounds Cardiac exam, Rhythm is regular.. No murmurs, rubs or gallops. Abdominal exam reveals normal bowel sounds, soft non tender, ostomy in the right abdomen Extremities are nonedematous and both pedal pulses are present Neurologic exam is alert and oriented x3, no focal loss of strength or sensation Skin is without bruises or rashes Psychologically is without concerns for anxiety or depression Results & Data Results & Data ([facility]) Vital Signs (Past 12 Hours) Vital Signs Temp Pulse Pulse Resp BP Pulse Ox 03/19/21 07:38 98.6 F 69 18 106/74 96 03/19/21 03:55 98.1 F 74 18 108/58 L 95 03/18/21 23:00 99 H 03/18/21 22:15 98.8 F 115 H 20 145/84 H 98 PG Care Time/CCT Total # of Minutes Spent Total Time Spent with Patient: Total time spent is greater than 50% in coordination of care (as documented) at patient's floor/unit and/or counseling patient: Coding Level of Care Code 68688 Subseq Hosp Care Lvl 3 Diagnoses UTI (urinary tract infection) N39.0 Hematuria presence: without hematuria Urinary tract infection type: site unspecified Infectious encephalopathy G93.49; B99.9 YUMIKO (acute kidney injury) N17.9 Cardiomyopathy I42.9 Pacemaker Z95.0 Hypertension I10 Diabetes E11.9 COPD (chronic obstructive pulmonary disease) J44.9 DVT prophylaxis Z29.9 (1) UTI (urinary tract infection) Hematuria presence: without hematuria Urinary tract infection type: site unspecified Qualified Code(s): N39.0 - Urinary tract infection, site not specified
[2021-03-19] MEDS: BENZONATATE 100 MG CAPSULE PO PRN ×2 (09:41→17:06)
[2021-03-19] MEDS: ONDANSETRON INJ 2 MG/ML 2 ML VIAL IV PRN (16:27)
[2021-03-19] MEDS: cefTRIAXone SODIUM 2,000 MG in DEXTROSE 5% 50 ML IV SCH (18:02)
[2021-03-19] MEDS: HYDROcodone/ACETAMINOPHEN 10/325 TAB PO PRN (19:43)
[2021-03-19] MEDS: MONTELUKAST SODIUM 10 MG TABLET PO SCH (21:41)
[2021-03-19] MEDS: VALSARTAN 80 MG TAB PO SCH (21:41)
[2021-03-19] MEDS: allopurinoL 100 MG TAB PO SCH (21:42)
[2021-03-19] MEDS: LATANOPROST 0.005% OP SOLN 2.5 ML BTL OPB SCH (21:42)
[2021-03-20] MEDS: ONDANSETRON INJ 2 MG/ML 2 ML VIAL IV PRN ×2 (03:07→08:15)
[2021-03-20] MEDS: HYDROcodone/ACETAMINOPHEN 10/325 TAB PO PRN (04:59)
[2021-03-20] MEDS ORDERED: METOCLOPRAMIDE HCL INJ 5 MG/ML 2 ML VIAL IV ONE (04:59)
[2021-03-20] MEDS ORDERED: PROCHLORPERAZINE 5 MG in SYRINGE 4 ML IV ONE (05:00)
[2021-03-20] MEDS: ASPIRIN 81 MG ECTAB PO SCH (08:15)
[2021-03-20] MEDS: ISOSORBIDE MONO EXTENDED REL 30 MG TABCR PO SCH (08:15)
[2021-03-20] MEDS: BENZONATATE 100 MG CAPSULE PO PRN (08:15)
[2021-03-20] MEDS: FUROSEMIDE 40 MG TAB PO SCH (08:15)
[2021-03-20] MEDS: FERROUS SULFATE 325 MG TAB PO SCH (08:15)
[2021-03-20] MEDS: FAMOTIDINE 20 MG TAB PO SCH (08:15)
[2021-03-20] MEDS: carvediloL 25 MG TAB PO SCH (08:15)
[2021-03-20] MEDS: ATORVASTATIN 40 MG TAB PO SCH (08:15)
[2021-03-20] MEDS: APIXABAN 5 MG TABLET PO SCH (08:15)
[2021-03-20] MEDS: CITALOPRAM 20 MG TAB PO SCH (08:15)
[2021-03-20] MEDS: UMECLIDINIUM BROMIDE 62.5MCG/BLISTER 7 PUFFS/INHALER INH SCH (08:15)
[2021-03-20] MEDS: INSULIN ASPART 100 UNITS/ML 3 ML PEN SC SCH ×2 (08:16→12:08)
--- NOTE | 2021-03-20 16:37 | Discharge Summary ---
Date of Service March 20, 2021 Admission HPI Per Admitting Provider 70yo F w/ hx of cardiomyopathy, pacemaker, and several UTIs who presents to the ED with confusion. Per her , she was in her usual state of health until yesterday. Yesterday, she was "not feeling good" though he cannot really explain what was wrong. He felt that her legs were getting more swollen and that she just was extra fatigued. She did have a fall, but he feels that was unrelated. He reports that he asked her about dysuria, polyuria, etc, and that she didn't really answer him. However, otherwise, she had no focal symptoms, and they went to bed. This morning, she was confused and "talking non-sense" per the patient's . She reportedly said, "The kids are singing [place] carols." which to him, she was referring to the outdoor birds as "kids" which they sometimes do. However, she continued to be confused, and she was brought in by EMS. He reports this is the third time that she's been hospitalized with UTIs. The last was about 3 months ago, and must have been at an outside hospital as we have no records of it. On my exam, she is awake and semi-alert. She will say responses like "Ok." to certain questions, but is only able to answer a few yes/no questions before having trouble following. She cannot give any history on her own. Principal Diagnosis e coli uti poa Discharge Exam The patient appeared chronically ill but says she is at her baseline Vital signs as documented. Lungs are clear to auscultation and appear unlabored Cardiac exam, Rhythm is regular.. No murmurs, rubs or gallops. Abdominal exam reveals normal bowel sounds, soft non tender, no masses, maybe left lateral hernia Extremities are nonedematous and both pedal pulses are normal. Neurologic exam is alert and oriented, no focal loss of strength or sensation Skin is without bruises or rashes Psychologically is without concerns for anxiety or depression. Discharge Data Allergies Allergy/AdvReac Type Severity Reaction Status Date / Time Iodinated Contrast Media Allergy Unknown "CONTRAST Verified 03/18/21 14:29 MEDIA" ALLERGY orphenadrine Allergy Unknown Verified 03/18/21 14:29 prochlorperazine Allergy Unknown Verified 03/18/21 14:29 Unclassified Drugs Allergy Unknown XANTHINE Uncoded 03/18/21 14:29 ALLERGY Consultations 03/18/21 14:07 ED Decision to Admit Stat 03/18/21 18:26 Consult Health Information Management Routine Ordered Studies 03/18/21 12:15 CT abd pelvis wo con Stat CT head/brain wo con Stat Hospital Course (1) UTI (urinary tract infection): E Coli sensitive to Ceftriaxone, pt wants to go home, typically without a urinary cath, will have home on cefdinir (2) Infectious encephalopathy: Due to presumed UTI. CT head normal on admission. - resolved (3) YUMIKO (acute kidney injury): resolved (4) Cardiomyopathy: Likely ischemic cardiomyopathy as she has a hx of ME per notes. Per , EF is ~15% (will try to obtain record from PCP/lead front end developer),Chronic systolic heart failure. - Continue ASA, statin, beta-ethel, ARB, Imdur, and Lasix appears euvolemic (5) Pacemaker: Presently in atrially-sensed, ventricularly paced rhythm. she has the ICD (other than primary prevention) (6) Hypertension: - Continue above meds - (7) Diabetes: resume home medication - A1c 8.2 (8) COPD (chronic obstructive pulmonary disease): No wheezing on exam. No indication of acute exacerbation. - Continue home tiotropium and montelukast - DuoNebs PRN (9) Abnormal CT of the abdomen: Patient states she is in transition with [facility] primary care. Will have nurse navigator contact for appropriate follow-up CT scan abdomen pelvis with dedicated pancreatic study as an outpatient. Mass seen in pancreas is the same size as was in 2012 which is reassuring however attenuation is changed Total Time Total Time Spent Total Time Spent (In Minutes): It required greater than 30 minutes to prepare this patient for discharge Discharge Plan Discharge Items Patient Disposition: Home - Self-Care Reason For Visit: UTI, INFECTIOUS ENCEPHALOPATHY Discharge Diagnosis: urinary tract infection present on admission weakness from infection Condition on Discharge: Good Activity: Resume your previous activity Non-emergency contact: Primary Care Provider Call non-emergency contact if: you have any medication questions and you have a fever Follow-up/Referrals: Carola Stanley DO [Primary Care Provider] - 03/30/21 10:20 am Diet: Carb Consistent or DM2 Addtl Attending Provider Instructions: please resume all home medications complete all of your antibiotics follow up with a primary care visit this week Pending Studies at Discharge: No Stand-Alone Forms: My [facility], Smoking Cessation Medications and DC Order Prescriptions: New cefdinir 300 mg capsule 300 mg PO BID 5 Days Qty: 10 RF: 0 Continued furosemide [Lasix] 40 mg tablet 40 mg PO BID RF: 0 latanoprost [Xalatan] 0.005 % drops 1 drp OPB HS RF: 0 atorvastatin [Lipitor] 40 mg tablet 40 mg PO DAILY RF: 0 carvedilol [Coreg] 25 mg tablet 25 mg PO BID RF: 0 gabapentin [Neurontin] 600 mg tablet 600 mg PO TID RF: 0 tizanidine [Zanaflex] 4 mg tablet 2 - 4 mg PO Q24H PRN (Reason: Muscle Spasm) RF: 0 isosorbide mononitrate 30 mg tablet extended release 24 hr 30 mg PO QAM RF: 0 hydrocodone-acetaminophen 10-325 mg tablet 1 tab PO TID PRN (Reason: Pain) RF: 0 aspirin [Aspirin Low Dose] 81 mg Tablet,Delayed Release (Dr/Ec) 81 mg PO QAM RF: 0 citalopram [Celexa] 20 mg tablet 20 mg PO QAM RF: 0 potassium chloride [Klor-Con M20] 20 mEq tablet,ER particles/crystals 20 meq PO BID RF: 0 famotidine [Pepcid] 20 mg tablet 20 mg PO BID RF: 0 benzonatate [Tessalon Perles] 100 mg capsule 100 mg PO TID PRN (Reason: Cough) RF: 0 ferrous sulfate [iron] 325 mg (65 mg iron) Tablet 325 mg PO QAM RF: 0 montelukast [Singulair] 10 mg tablet 10 mg PO HS RF: 0 allopurinol 300 mg tablet 300 mg PO HS RF: 0 fentanyl [Duragesic] 25 mcg/hr patch 72 hour 25 mcg transdermal Q72H RF: 0 Cerovite Senior Tablet 1 tab PO QAM RF: 0 valsartan [Diovan] 40 mg tablet 40 mg PO HS RF: 0 Atrovent HFA 17 mcg/actuation HFA aerosol inhaler 2 puff INHALATION QID RF: 0 Lantus Solostar U-100 Insulin 100 unit/mL (3 mL) insulin pen 15 unit SUBCUT HS RF: 0 diclofenac sodium [Voltaren Arthritis Pain] 1 % gel 2 g TOPICAL QID PRN (Reason: Pain) RF: 0 Eliquis 5 mg tablet 5 mg PO BID RF: 0 Spiriva Respimat 1.25 mcg/actuation mist 2 puff INHALATION DAILY RF: 0 magnesium oxide 400 mg magnesium Tablet 400 mg PO QAM RF: 0 Discharge Orders: Discharge Order (Routine); Ordered 03/20/21 Ordered By: Jose Steven/Other Patient Handouts: ED Urinary Tract Infections in Women Admission Data Admit Date/Time: 03/18/21 15:07 Attending Provider: Jose Hudson Admit Provider: Campos Bell Primary Care Provider: Carola Stanley Other Providers: Campos Bell Other Interventions: Discharge Summary Assessment (RN) Last Done: 03/20/21 12:40 Coding Level of Care Code D/C DAY MANAGEMENT >30 MINS Diagnoses UTI (urinary tract infection) N39.0 Hematuria presence: without hematuria Urinary tract infection type: site unspecified Infectious encephalopathy G93.49; B99.9 YUMIKO (acute kidney injury) N17.9 Cardiomyopathy I42.9 Pacemaker Z95.0 Hypertension I10 Diabetes E11.9 COPD (chronic obstructive pulmonary disease) J44.[address] of the abdomen R93.5
== END 2021-03-20 13:57 | disposition home or self-care (01) | DRG 689 ==
LOC: ED 12:09 → SUATTDRO 15:07 → 2W 15:07